=== PATIENT | male | born 1995 | race Caucasian/White ===

== ENCOUNTER 2020-01-16 10:14 | Emergency (ER) | payer OTHER ==
[2020-01-16 10:30] VITALS: BP 123/86; PULSE 79; TEMP 98.2; BMI 32.2
--- NOTE | 2020-01-16 10:46 | PDOC ---
History of Present Illness - General Chief Complaint: Pain, Acute Stated Complaint: ABD PAIN Time Seen by Provider: 01/16/20 10:37 History Source: Patient - History of Present Illness Timing/Duration: reports: other Quality: reports: other Abdominal Pain Onset Location: reports: epigastric Pain Radiation: reports: no radiation Past History - Medical History Allergies/Adverse Reactions: Allergies Allergy/AdvReac Type Severity Reaction Status Date / Time No Known Allergies Allergy Verified 01/16/20 10:27 Home Medications: Ambulatory Orders Famotidine [Pepcid] 20 mg PO BID #28 tablet 01/16/20 Mag Hydrox/Al Hydrox/Simeth [Mylanta Suspension -] 30 ml PO Q6H #1 bottle 01/16/20 Asthma: Yes COPD: No Psychiatric Problems: Yes - Immunization History Immunization Up to Date: Yes - Psycho-Social/Smoking History Smoking History: Never smoked - Substance Abuse Hx (Audit-C & DAST Scrn) How often the patient has a drink containing alcohol: Never Score: In Men: 4 or > Positive; In Women: 3 or > Positive: 0 Screen Result (Pos requires Nsg. Audit-10AR): Negative In the last yr the pt used illegal drug/Rx for NonMed reason: No Score: Yes response is considered Positive: 0 Screen Result (Positive result requires Nsg. DAST-10): Negative *Physical Exam - Vital Signs Last Vital Signs Temp Pulse Resp BP Pulse Ox 98.2 F 79 20 123/86 97 01/16/20 10:27 01/16/20 10:27 01/16/20 10:27 01/16/20 10:27 01/16/20 10:27 - Physical Exam General Appearance: Yes: Appropriately Dressed. No: Apparent Distress HEENT: positive: Normal Voice Neck: positive: Supple Respiratory/Chest: negative: Respiratory Distress Gastrointestinal/Abdominal: positive: Normal Bowel Sounds, Soft. negative: T erick, Distended, Guarding, Rebound Musculoskeletal: negative: CVA Tenderness Integumentary: positive: Dry, Warm Neurologic: positive: Fully Oriented, Alert, Normal Mood/Affect Medical Decision Making - Medical Decision Making 01/16/20 10:41 24-year-old male, history of schizophrenia, here with on and off epigastric "discomfort" x1 week that patient states started after he drank coffee from the [employer] store. Also reports bloating. Discomfort worsens on a empty stomach and feels similar to prior diagnosis of gastritis per patient. No excessive burping, melena or bright red blood per rectum, change in bowel movements nausea vomiting fever or chills. Has not taken anything for sxs. Reports drinking coffee "a lot", denies alcohol use or freq NSAID use. Denies illicit drug use including marijuana use. No sig pain in ER at this time per pt See exam Possible gastritis given hx, unlikely pancreatitis or bilary and no lower abd pain/ttp to suggest appy No n/v/f/c Pt stable and well ayanna w/ benign abd No need for w/u/intervention in ED Dc w/ trial of GI cocktail Dc to refrain from caffeine intake and to return as needed Discharge - Discharge Information Problems reviewed: Yes Clinical Impression/Diagnosis: Epigastric discomfort Condition: Improved Disposition: HOME - Additional Discharge Information Prescriptions: Mag Hydrox/Al Hydrox/Simeth [Mylanta Suspension -] 30 ml PO Q6H #1 bottle Famotidine [Pepcid] 20 mg PO BID #28 tablet - Follow up/Referral - Patient Discharge Instructions Patient Printed Discharge Instructions: Gastritis Additional Instructions: Your symptoms may be related to gastritis Take medications and directed and limit coffee intake If symptoms or get worse, please return to ER - Post Discharge Activity
== END 2020-01-16 11:04 | disposition home or self-care (01) ==
LOC: JER 10:14
DX: R10.13 Epigastric pain (principal)
CPT/HCPCS: 99282-25

== ENCOUNTER 2020-11-11 20:38 | Emergency (ER) | payer OTHER ==
[2020-11-11 20:58] VITALS: BMI 35.6
[2020-11-11] MEDS ORDERED: SODIUM CHLORIDE 0.9% 500 ML INFUS.BAG IV ONE (21:24)
[2020-11-11 22:08] LABS: BASO % 0.6 % (0-2.0); EOS % 1.4 % (0-4.5); HEMATOCRIT 44.4 % (35.4-49); HEMOGLOBIN 14.8 GM/dL (11.7-16.9); LYMPH % 19.8 % (8-40); MCH 25.9 pg (25.7-33.7); MCHC 33.3 g/dl (32.0-35.9); MEAN CELL VOLUME 77.9 fl (80-96); MEAN PLT VOLUME 8.3 fl (7.5-11.1); MONO % 11.5 % (3.8-10.2); NEUT % 66.7 % (42.8-82.8); PLATELET COUNT 288 10^3/uL (134-434); RBC 5.69 M/mm3 (4.00-5.60); RDW 13.1 % (11.9-15.9); WHITE BLOOD COUNT 12.7 K/mm3 (4.0-10.0)
[2020-11-11 22:22] LABS: CHLORIDE 106 mmol/L (98-107); SODIUM 139 mmol/L (136-145)
[2020-11-11 22:23] LABS: CALCIUM 9.2 mg/dL (8.5-10.1)
[2020-11-11 22:24] LABS: ALBUMIN 4.3 g/dl (3.4-5.0); ANION GAP 8 MMOL/L (8-16); BLOOD UREA NITROGEN 13.2 mg/dL (7-18); CO2 25 mmol/L (21-32)
[2020-11-11 22:25] LABS: GLUCOSE,RANDOM 91 mg/dL (74-106)
[2020-11-11 22:27] LABS: CREATININE 1.2 mg/dL (0.55-1.3); SGOT/AST 41 U/L (15-37); SGPT/ALT 95 U/L (13-61)
[2020-11-11 22:29] LABS: BILIRUBIN,TOTAL 0.8 mg/dL (0.2-1)
[2020-11-11 22:30] LABS: ALK PHOS 82 U/L (45-117)
[2020-11-11 22:43] LABS: PH,URINE 5.5 (5.0-8.0); URINE APPEARANCE CLEAR; URINE BILIRUBIN NEGATIVE (NEGATIVE); URINE COLOR DK YELLOW; URINE GLUCOSE (UA) NEGATIVE (NEGATIVE); URINE KETONE 1+ (NEGATIVE); URINE LEUK ESTERASE NEGATIVE (NEGATIVE); URINE NITRITE NEGATIVE (NEGATIVE); URINE PROTEIN TRACE (NEGATIVE)
[2020-11-11 22:52] LABS: COCAINE, UR NEGATIVE (NEGATIVE); OPIATES, URI NEGATIVE (NEGATIVE); URINE AMPHETAMINES NEGATIVE (NEGATIVE); URINE BARBITURATES NEGATIVE (NEGATIVE); URINE BENZODIAZEPINES NEGATIVE (NEGATIVE)
[2020-11-11 22:53] LABS: METHADONE, UR NEGATIVE (NEGATIVE)
[2020-11-11 22:54] LABS: PHENCYCLIDINE,URINE NEGATIVE (NEGATIVE)
[2020-11-11] MEDS ORDERED: QUEtiapine FUMARATE 25 MG TABLET PO ONE (23:03)
[2020-11-11] MEDS ORDERED: risperiDONE 2 MG TABLET PO ONE (23:03)
[2020-11-11] MEDS ORDERED: QUEtiapine FUMARATE 25 MG TABLET ONE (23:10)
[2020-11-12] MEDS ORDERED: HALOPERIDOL LACTATE 5 MG/ML IM ONE (01:36)
[2020-11-12] MEDS ORDERED: LORazepam 2 MG TABLET PO PRN (01:43)
[2020-11-12] MEDS ORDERED: LORazepam 2 MG/ML SDV VIAL IM ONE (01:45)
[2020-11-12] MEDS ORDERED: LORazepam 0.5 MG TABLET ONE (01:47)
[2020-11-12 18:11] VITALS: TEMP 97.8
[2020-11-12 18:13] VITALS: BP 131/68; PULSE 71
== END 2020-11-12 18:13 | disposition home or self-care (01) ==
LOC: JER 20:38
DX: R45.851 Suicidal ideations (principal)
CPT/HCPCS: 36415; 80053; 80307; 81003; 85025; 93005; 93010; 99284-25; C9803; U0003; U0005

== ENCOUNTER 2022-05-17 10:34 | Emergency (ER) | payer OTHER ==
[2022-05-17 10:40] VITALS: BP 157/89; PULSE 86; RESP 18; TEMP 99; BMI 34.0
[2022-05-17] MEDS ORDERED: DIPHTH,PERTUSS(ACELL),TET 0.5 ML DISP.SYRIN IM ONE ×2 (11:15→11:23)
== END 2022-05-17 11:27 | disposition home or self-care (01) ==
LOC: JER 10:34 → JERFT 10:34
PROC: 3E0234Z Introduction of Serum, Toxoid and Vaccine into Muscle, Percutaneous Approach (ICD-10-PCS; principal; 2022-05-17)
DX: S91.131A Puncture wound without foreign body of right great toe without damage to nail, initial encounter (principal); W45.8XXA Other foreign body or object entering through skin, initial encounter
CPT/HCPCS: 90471; 90715; 99282-25

== ENCOUNTER 2022-06-07 17:49 | Emergency (ER) | payer OTHER ==
[2022-06-07 17:59] VITALS: BP 130/88; PULSE 104; RESP 16; BMI 31.3
[2022-06-07] MEDS ORDERED: morphine CARPU-JECT 2 MG/1 ML DISP.SYRIN IVPUSH ONE (18:28)
[2022-06-07] MEDS ORDERED: SODIUM CHLORIDE 0.9% 500 ML INFUS.BAG IV ONE (18:28)
[2022-06-07 19:45] LABS: BASO % 0.4 % (0-2.0); EOS % 0.8 % (0-4.5); HEMATOCRIT 48.4 % (35.4-49); HEMOGLOBIN 15.4 GM/dL (11.7-16.9); LYMPH % 9.9 % (8-40); MCH 25.3 pg (25.7-33.7); MCHC 31.8 g/dl (32.0-35.9); MEAN CELL VOLUME 79.7 fl (80-96); MONO % 8.3 % (3.8-10.2); NEUT % 80.6 % (42.8-82.8); PLATELET COUNT 295 10^3/uL (134-434); RBC 6.07 M/mm3 (4.00-5.60); RDW 13.3 % (11.9-15.9); WHITE BLOOD COUNT 13.5 K/mm3 (4.0-10.0)
[2022-06-07 19:47] LABS: PH,URINE 5.5 (5.0-8.0); URINE APPEARANCE CLEAR; URINE BILIRUBIN NEGATIVE (NEGATIVE); URINE COLOR YELLOW; URINE GLUCOSE (UA) NEGATIVE (NEGATIVE); URINE KETONE TRACE (NEGATIVE); URINE LEUK ESTERASE NEGATIVE (NEGATIVE); URINE NITRITE NEGATIVE (NEGATIVE); URINE PROTEIN TRACE (NEGATIVE)
[2022-06-07 20:01] LABS: INR 1.11 (0.83-1.09); PROTHROMBIN TIME (PATIENT) 12.8 SEC (9.7-13.0)
[2022-06-07 20:06] LABS: ALBUMIN 4.4 g/dl (3.4-5.0); CALCIUM 9.5 mg/dL (8.5-10.1)
[2022-06-07 20:09] LABS: CREATININE 0.9 mg/dL (0.55-1.3)
[2022-06-07 20:11] LABS: BILIRUBIN,TOTAL 1.4 mg/dL (0.2-1); TOT PROT 7.8 g/dl (6.4-8.2)
[2022-06-07] MEDS ORDERED: ACETAMINOPHEN 1000 MG/100 ML BAG IVPB ONE (20:54)
[2022-06-07] MEDS ORDERED: ACETAMINOPHEN INJECTION 100 ML IVPB ONE (20:55)
[2022-06-07 21:02] LABS: OPIATES, URI NEGATIVE (NEGATIVE); URINE BARBITURATES NEGATIVE (NEGATIVE)
[2022-06-07 21:03] LABS: PHENCYCLIDINE,URINE NEGATIVE (NEGATIVE); URINE AMPHETAMINES NEGATIVE (NEGATIVE); URINE BENZODIAZEPINES NEGATIVE (NEGATIVE)
[2022-06-07 21:06] LABS: COCAINE, UR NEGATIVE (NEGATIVE); METHADONE, UR NEGATIVE (NEGATIVE)
[2022-06-07] MEDS ORDERED: ONDANSETRON 4 MG/2 ML VIAL IVPUSH ONE (21:10)
[2022-06-07] MEDS ORDERED: ONDANSETRON 4 MG/2 ML VIAL ONE (21:30)
== END 2022-06-07 22:44 | disposition home or self-care (01) ==
LOC: JER 17:49
PROC: 3E0333Z Introduction of Anti-inflammatory into Peripheral Vein, Percutaneous Approach (ICD-10-PCS; principal; 2022-06-07)
PROC: 3E033NZ Introduction of Analgesics, Hypnotics, Sedatives into Peripheral Vein, Percutaneous Approach (ICD-10-PCS; 2022-06-07)
PROC: 3E033GC Introduction of Other Therapeutic Substance into Peripheral Vein, Percutaneous Approach (ICD-10-PCS; 2022-06-07)
DX: K76.0 Fatty (change of) liver, not elsewhere classified (principal)
CPT/HCPCS: 36415; 74177-TC; 80053; 80307; 81003; 83690; 85025; 85610; 86850; 86900; 86901; 87086; 93005; 93010; 99285-25